=== PATIENT | female | born 1970 | race Caucasian/White ===

== ENCOUNTER 2017-01-01 10:02 | Emergency (ER) | payer SELFPAY | END 2017-01-01 12:10 | disposition home or self-care (01) | LOC: D.ER 10:02 | DX: S90.32XA Contusion of left foot, initial encounter (principal); W11.XXXA Fall on and from ladder, initial encounter; Y93.89 Activity, other specified; Y92.029 Unspecified place in mobile home as the place of occurrence of the external cause ==